=== PATIENT | female | born 2000 | race Caucasian/White ===

== ENCOUNTER 2022-10-01 16:09 | Emergency (ER) | payer MEDICAID, SELFPAY ==
[2022-10-01 16:18] VITALS: BP 92/36; PULSE 106; RESP 18; TEMP 36.7; O2SAT 95; BMI 23.2
[2022-10-01 18:05] VITALS: BP 112/76; PULSE 106; RESP 18; TEMP 36.7; O2SAT 95; BMI 23.3
--- NOTE | 2022-10-01 18:23 | EXP.UTC ---
Discharge Plan Disposition Patient Disposition: Home, Self-Care Condition: Good Prescriptions Prescriptions: New ondansetron 4 mg tablet,disintegrating 4 mg PO Q8H PRN (Reason: nausea and vomiting) Qty: 10 0RF Referrals Follow up/Referrals: Provider,Referral, MD [Primary Care Provider] - See instructions Activity Restrictions/Add. Instructions Additional Instructions/Restrictions: Drink extra fluids with and between meals. If you have difficulty drinking, try very small amounts of water or suck on ice chips. ? Avoid fruit juices, as these do not replace minerals and can actually increase diarrhea. ? Children and adults can use sports drinks to replenish electrolytes. Younger children and infants should use products formulated for children, like oral rehydration solutions. ? Eat food in small amounts and let your stomach recover. ? Get lots of rest. You may feel tired or weak. ? No greasy or fried foods for the next 24-48 hours BRAT diet Bananas Rice Apples and [place] ? Make sure to drink plenty of liquids ? Return if needed ? Straight to ER if any life threatening symptoms ? Zofran as prescribed ? You was given an outpatient order for diarrhea panel, please collect specimen and bring back to outpatient lab then call back to the [facility] or follow up with family doctor for results ? Follow up with family doctor in the next 48-72 hours if no improvement or any worsening of symptoms Clinical Impressions Clinical Impression: Viral syndrome Stand Alone Forms Stand Alone Forms: Work/School Release Discharge ED Provider: Tiffanie Michaels [facility] [place] General Stated complaint: vomiting, chills, h/a, body aches Mode of Arrival: Ambulatory Source of Information: Patient Limitations: No Limitations Time Seen by Provider: 10/01/22 18:24 Description of Symptoms (Recalled from Triage Doc. by RN): PATIENT C/O VOMITING, BODY ACHES, HEADACHE, SOA, AND CHILLS HEENT Symptoms (Recalled from RN notes): Yes Resp Symptoms (Recalled from RN notes): No Skin Symptoms (Recalled from RN notes): No MS Symptoms (Recalled from RN notes): No Functional Status (Recalled from RN notes): WNL History of Present Illness Provider Complaint: Patient states that she woke up yesterday not feeling well States that she has been having nausea, vomiting, body aches, chills, headache and feeling achy all over States that today she has continued to feel worse so this evening she came in to get checked out Related Data Previous Rx's Medication Instructions Recorded ondansetron 4 mg disintegrating 4 mg PO Q8H PRN nausea and 10/01/22 tablet vomiting #10 tabs Allergies Allergy/AdvReac Type Severity Reaction Status Date / Time No Known Allergies Allergy Verified 10/01/22 18:43 Worker's Comp Is this a Worker's Comp case?: No [facility] Disclaimer: The information contained in this section may have been updated after the patient was seen, as this information can be updated by other users. Social History Smoking Status: Unknown if ever smoked alcohol intake: never current occupational status: employed Travel in the last 8 weeks: None ROS Obtained: Yes All systems reviewed & no additional complaints except as documented and Yes Systems reviewed as appropriate & no additional complaints except as documented Constitutional Constitutional: Reports system reviewed and no additional complaints, except as documented, Reports as per HPI, Reports body ache, Reports chills, Reports fever(s) and Reports headache(s) ENT Ears, Nose, Mouth, and Throat: Reports system reviewed and no additional complaints, except as documented, Reports as per HPI, Reports headache(s) and Reports sore throat Cardiovascular Cardiovascular: Reports system reviewed and no additional complaints, except as documented and Reports as per HPI Respiratory Respiratory: Reports system reviewed and no additi
[2022-10-01 18:44] LABS: UTC Influenza A Antigen Negative (Negative); UTC Pregnancy Test, Urine Negative (Negative)
[2022-10-01 18:44] LABS: UTC Strep Screen (Rapid) Negative (Negative)
[2022-10-01 18:45] LABS: UTC Influenza B Antigen Negative (Negative)
[2022-10-01 18:55] VITALS: BP 112/76; PULSE 106; RESP 18; TEMP 36.7; O2SAT 95
== END 2022-10-01 19:20 | disposition home or self-care (01) ==
PROVIDERS: Emergency Provider Nurse Practitioner
DX: R11.10 Vomiting, unspecified (principal); R50.9 Fever, unspecified; R51.9 Headache, unspecified; R52 Pain, unspecified; B34.9 Viral infection, unspecified
CPT/HCPCS: 81025; 87804; 87880; 99212; C9803; G0463; U0003; U0005

== ENCOUNTER 2023-02-24 19:48 | Emergency (ER) | payer MEDICAID, SELFPAY ==
[2023-02-24 19:52] VITALS: BP 139/87; PULSE 63; RESP 16; TEMP 36.8; O2SAT 100; BMI 23.8
--- NOTE | 2023-02-24 20:07 | XR_ITS ---
PROCEDURE INFORMATION: Exam: XR Right Hand Exam date and time: 02/24/2023 8:02 PM Age: 22 years old Clinical indication: Pain; Hand; Right TECHNIQUE: Imaging protocol: Radiologic exam of the right hand. Views: 3 or more views. COMPARISON: No relevant prior studies available. FINDINGS: Bones/joints: Normal. Soft tissues: Normal. IMPRESSION: No acute findings.
[2023-02-24 20:58] VITALS: BP 130/85; PULSE 60; RESP 16; TEMP 36.8; O2SAT 98
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
--- NOTE | 2023-02-24 21:07 | PC.NURSE ---
ER Dr at bedside at this time
== END 2023-02-24 21:26 | disposition home or self-care (01) ==
PROVIDERS: Emergency Provider Emergency Medicine
DX: W20.8XXA Other cause of strike by thrown, projected or falling object, initial encounter; F17.200 Nicotine dependence, unspecified, uncomplicated; S60.221A Contusion of right hand, initial encounter
CPT/HCPCS: 73130; 99283

== ENCOUNTER 2023-03-04 22:48 | Emergency (ER) | payer MEDICAID, SELFPAY ==
[2023-03-04 22:49] VITALS: BP 148/89; PULSE 91; RESP 18; TEMP 37.2; O2SAT 100; BMI 22.6
[2023-03-04 22:52] VITALS: BP 148/89; PULSE 91; O2SAT 100
--- NOTE | 2023-03-04 23:05 | CT_ITS ---
PROCEDURE INFORMATION: Exam: CT Maxillofacial Without Contrast Exam date and time: 03/04/2023 11:34 PM Age: 22 years old Clinical indication: Other: Lockjaw; Patient HX: C/O pain right side TECHNIQUE: Imaging protocol: Computed tomography of the face without contrast. Total images: 233 Radiation optimization: All CT scans at this facility use at least one of these dose optimization techniques: automated exposure control; mA and/or kV adjustment per patient size (includes targeted exams where dose is matched to clinical indication); or iterative reconstruction. REPORTING DATA: Count of CT and Cardiac NM exams in prior 12 months: This patient has received 0 known CTs and 0 known cardiac nuclear medicine studies in the 12 months prior to the current study. COMPARISON: No relevant prior studies available. FINDINGS: Orbital cavities: Orbital globes are intact and symmetric. No lens dislocation. No retro-orbital mass, fluid, or air. Bones/joints: No facial bone fracture or concerning bone lesions. No mandibular fracture or concerning bone lesions. Bilateral temporomandibular joints are age appropriate. No dislocation or subluxation. No erosions or concerning calcifications. Minor degenerative disc change C4-C5. Paranasal sinuses: Paranasal sinuses are clear. Bilateral ostiomeatal complexes are patent. Soft tissues: No facial hematoma or significant soft tissue swelling. Nasal cavity: Nasal septal deviation to the right. Dental: Metallic artifact from dental hardware obscures adjacent structures. Large dental erosion/cavitary lesion referable to the posterior-most right maxillary molar. IMPRESSION: 1. No acute osseous abnormality. 2. Unremarkable mandible and bilateral temporomandibular joints. 3. Large erosion/dental caries referable to the posterior-most right maxillary molar. 4. Clear paranasal sinuses.
[2023-03-04 23:15] LABS: Basophils % 0.3 % (0.1-2.0); Eosinophils # 0.2 K/mm3 (0.0-0.4); Eosinophils % 1.6 % (0.1-12.0); Hemoglobin 13.5 g/dL (12.2-16.2); Lymphocytes # 4.5 K/mm3 (0.7-4.5); Mean Corpuscular HGB Conc 32.2 g/dL (31.8-35.4); Mean Corpuscular Hemoglobin 30.4 pg (27.0-31.2); Mean Corpuscular Volume 94.6 fl (81-99); Mean Platelet Volume 6.6 fl (7.4-10.4); Monocytes # 0.7 K/mm3 (0.1-1.0); Neutrophils # 5.9 K/mm3 (1.8-7.8); Neutrophils % 52.1 % (37.0-80.0); Platelet Count 335 K/mm3 (142-424); Red Blood Count 4.44 M/mm3 (4.20-5.40); White Blood Count 11.3 K/mm3 (4.8-10.8)
[2023-03-04 23:17] LABS: Chloride 103 mmol/L (98-107); Sodium 140 mmol/L (136-145)
[2023-03-04 23:19] LABS: Blood Urea Nitrogen 18 mg/dl (7-17); Creatinine Clearance Estimated 110 mL/min (50-200); Estimated Glomerular Filt Rate 103 ml/min (>60); GFR (African American) 124 ML/MIN (>60)
[2023-03-04 23:20] LABS: Alanine Aminotransferase 21 U/L (12-78); Albumin Level 4.7 g/dl (3.5-5.0); Albumin/Globulin Ratio 1.3 (1.1-1.8); Alkaline Phosphatase 45 U/L (38-126); Aspartate Amino Transferase 32 U/L (14-36); Bilirubin,Total 1.1 mg/dl (0.2-1.3); Calcium 8.9 mg/dl (8.4-10.2); Carbon Dioxide 25 mmol/L (22.0-30.0); Globulin 3.5 g/dL (1.3-3.2); Glucose 143 mg/dl (74-100); Total Protein,Serum 8.2 g/dl (6.3-8.2)
[2023-03-04 23:23] LABS: HCG Qualitative, Serum Negative (Negative)
--- NOTE | 2023-03-04 23:33 | HMH.EDGENADL ---
Discharge Plan Disposition Patient Disposition: Home, Self-Care Prescriptions Prescriptions: New cephalexin [cephalexin] 500 mg capsule 500 mg PO TID Qty: 21 0RF ketorolac 10 mg tablet 10 mg PO Q8H PRN (Reason: pain) 3 Days Qty: 10 0RF cyclobenzaprine 10 mg tablet 10 mg PO BID Qty: 20 0RF No Action ondansetron 4 mg tablet,disintegrating 4 mg PO Q8H PRN (Reason: nausea and vomiting) Qty: 10 0RF Referrals Follow up/Referrals: Provider,Referral, MD [Primary Care Provider] - See instructions Clinical Impressions Clinical Impression: Arthralgia of right temporomandibular joint Instructions Patient Instructions: DI for Temporomandibular Disorder Discharge ED Provider: Emilia (ED)Tanner General Adult HPI General Chief complaint: PAIN Stated complaint: jaw pain Time Seen by Provider: 03/04/23 22:50 Mode of Arrival: Ambulatory Source of Information: Patient and Medical Record Limitations: No Limitations Description of Symptoms (Recalled from ER Triage Doc. by RN): pt states that her jaw locked up on her today and that when it did it felt lik eher top teeth on the right side were jammed up into the top of the jaw. the pt states that she has had her jaw lock before but not with the secondary feeling with the teeth. pain 07/09 History of Present Illness HPI narrative: pt with acute rt tmj and upper jaw pain which started today - no fever or other c/o Onset (ago): hour(s) Location: face Severity: moderate Associated symptoms: denies other symptoms Related Data Previous Rx's Medication Instructions Recorded ondansetron 4 mg disintegrating 4 mg PO Q8H PRN nausea and 10/01/22 tablet vomiting #10 tabs cephalexin 500 mg capsule 500 mg PO TID #21 caps 03/05/23 cyclobenzaprine 10 mg tablet 10 mg PO BID #20 tabs 03/05/23 ketorolac 10 mg tablet 10 mg PO Q8H PRN pain 3 days #10 03/05/23 tabs Allergies Allergy/AdvReac Type Severity Reaction Status Date / Time No Known Allergies Allergy Verified 10/01/22 18:43 [facility] Disclaimer: The information contained in this section may have been updated after the patient was seen, as this information can be updated by other users. Social History (Updated 10/01/22 @ 19:13 by Tiffanie Michaels APRN) Smoking Status: Current every day smoker alcohol intake: never current occupational status: employed Travel in the last 8 weeks: None ROS Obtained: Yes All systems reviewed & no additional complaints except as documented Physical Exam General General appearance: alert Head Head exam: normocephalic Eye Eye exam: Present PERRL and EOMI ENT ENT exam: Present mucous membranes moist and other (no def abscess on oral exam -) Neck Neck exam: Present trachea midline Respiratory Respiratory exam: Present normal lung sounds bilaterally; Absent respiratory distress Cardiovascular Cardiovascular exam: Present regular rate Abdominal Exam Abdominal exam: Present soft Extremities Exam Extremities exam: Present full ROM Neurological Exam Neurological exam: Present alert, oriented X3 and CN II-XII intact; Absent motor sensory deficit Skin Skin exam: Absent rash Medical Decision Making Medical Records Medical records reviewed: Yes I reviewed the patient's medical records. Ramiro Inquiry Pt receiving controlled substance: No Vital Signs: 03/04/23 22:49 03/04/23 22:52 Temperature 98.9 F Temperature Source Oral Pulse Rate 91 H Pulse Rate [Left] 91 H Respiratory Rate 18 Blood Pressure 148/89 H Blood Pressure [Right Arm] 148/89 H Blood Pressure Mean [Right Arm] 108 02 Sat by Pulse Oximetry 100 100 Oxygen Delivery Method Room Air Room Air Lab Data Lab results reviewed: Yes I reviewed the patient's lab results. Lab Results 03/04/23 23:00: WBC 11.3 H, RBC 4.44, Hgb 13.5, Hct 42.0, MCV 94.6, MCH 30.4, MCHC 32.2, RDW 12.0, Plt Count 335, MPV 6.6 L, Neut % (Auto) 52.1, Lymph % (Auto) 40.0, Leon % (Auto) 6.0, Eos % (Auto) 1.6,
[2023-03-05 00:51] VITALS: BP 148/89; PULSE 97; RESP 16; TEMP 36.8; O2SAT 98
== END 2023-03-05 01:55 | disposition home or self-care (01) ==
PROVIDERS: Emergency Provider Emergency Medicine
DX: M26.621 Arthralgia of right temporomandibular joint (principal); F17.200 Nicotine dependence, unspecified, uncomplicated
CPT/HCPCS: 70486; 80053; 84703; 85025; 96361; 96374; 96375; 99284; 99285; J0131; J0696; J2405

== ENCOUNTER 2023-12-13 17:25 | Emergency (ER) | payer MEDICAID, SELFPAY ==
[2023-12-13 17:35] VITALS: BP 137/91; PULSE 111; RESP 16; TEMP 36.7; O2SAT 99; BMI 26.6
--- NOTE | 2023-12-13 18:02 | XR_ITS ---
PROCEDURE INFORMATION: Exam: XR Right Foot Exam date and time: 12/13/2023 6:01 PM Age: 23 years old Clinical indication: Injury or trauma; Other: Stubbed toe; Blunt trauma; Patient HX: States she stubbed her toe. Bruising noted to 4th digit right foot; Additional info: Injury/pain TECHNIQUE: Imaging protocol: Radiologic exam of the right foot. Views: 1 or 2 views. COMPARISON: No relevant prior studies available. FINDINGS: Bones/joints: No acute fracture or malalignment. Soft tissues: Normal. IMPRESSION: No acute osseous findings.
--- NOTE | 2023-12-13 18:16 | HMH.EDGENADL ---
Discharge Plan Disposition Patient Disposition: Home, Self-Care Chief Complaint: Extremity Injury, Lower Prescriptions Prescriptions: No Action ondansetron 4 mg tablet,disintegrating 4 mg PO Q8H PRN (Reason: nausea and vomiting) Qty: 10 0RF cephalexin [cephalexin] 500 mg capsule 500 mg PO TID Qty: 21 0RF ketorolac 10 mg tablet 10 mg PO Q8H PRN (Reason: pain) 3 Days Qty: 10 0RF cyclobenzaprine 10 mg tablet 10 mg PO BID Qty: 20 0RF Referrals Follow up/Referrals: Provider,Referral, MD [Primary Care Provider] - See instructions Activity Restrictions/Add. Instructions Additional Instructions/Restrictions: Call your family doctor to establish care for this visit to the emergency department and schedule follow-up within 48 hours to ensure improvement. Take Tylenol 1000 mg every 6 hours (4 times daily) and ibuprofen 400 mg every 6 hours (4 times daily) as needed with food and water to prevent GI upset and kidney damage. Clinical Impressions Clinical Impression: Sprain of toe, fourth, right Discharge ED Provider: Carlos Castrejon General Adult HPI General Chief complaint: Extremity Injury, Lower Stated complaint: AO Right toe swelling pain turning black Time Seen by Provider: 12/13/23 17:37 Mode of Arrival: Ambulatory Source of Information: Patient Limitations: No Limitations Description of Symptoms (Recalled from ER Triage Doc. by RN): c/o right toe that has turned blue in color after hitting it on a rolling chair approx 2 hours ago. pt states that she has pain when walking. History of Present Illness HPI narrative: This is a 23-year-old female with no relevant medical history presenting with right toe pain. She states that she has on a chair just before arrival while she was walking. Difficulty putting her shoe on secondary to pain. It is bruised, swollen, tender, better when she elevates it, worse when she puts weight on it. It is moderate in intensity and does not radiate. Related Data Previous Rx's Medication Instructions Recorded ondansetron 4 mg disintegrating 4 mg PO Q8H PRN nausea and 10/01/22 tablet vomiting #10 tabs cephalexin 500 mg capsule 500 mg PO TID #21 caps 03/05/23 cyclobenzaprine 10 mg tablet 10 mg PO BID #20 tabs 03/05/23 ketorolac 10 mg tablet 10 mg PO Q8H PRN pain 3 days #10 03/05/23 tabs Allergies Allergy/AdvReac Type Severity Reaction Status Date / Time No Known Allergies Allergy Verified 10/01/22 18:[address] [facility] Disclaimer: The information contained in this section may have been updated after the patient was seen, as this information can be updated by other users. Social History (Updated 10/01/22 @ 19:13 by Tiffanie Michaels APRN) Smoking Status: Never smoker alcohol intake: never current occupational status: employed Travel in the last 8 weeks: None ROS Obtained: Yes All systems reviewed & no additional complaints except as documented Physical Exam General General appearance: alert and in no apparent distress Head Head exam: atraumatic and normocephalic Eye Eye exam: Present normal appearance, PERRL and EOMI ENT ENT exam: Present mucous membranes moist Neck Neck exam: Present normal inspection, full ROM and trachea midline Respiratory Respiratory exam: Absent respiratory distress, wheezes, stridor, accessory muscle use or prolonged expiratory phase Cardiovascular Cardiovascular exam: Present normal rhythm Abdominal Exam Abdominal exam: Present soft; Absent distention, tenderness, guarding, rebound or rigidity Extremities Exam Extremities exam: Present other (Right fourth toe swelling, bruising, tenderness. Range of motion intact and sensation intact); Absent edema Neurological Exam Neurological exam: Present alert, oriented X3, CN II-XII intact and normal gait; Absent motor sensory deficit Skin Skin exam: Present warm and dry; Absent diaphoresis or erythema Medical Decision Making Medical Records Medical records reviewed: Yes I reviewed the patient's medical records. Ramiro Inquiry Pt receiving controlled substance: No Ramiro was queried for this patient: No Vital Signs: 12/13/23 17:35 Temperature 98.1 F Temperature Source Oral Pulse Rate [Left Radial] 111 H Respiratory Rate 16 Blood Pressure [Right Arm] 137/91 H Blood Pressure Mean [Right Arm] 106 02 Sat by Pulse Oximetry 99 Oxygen Delivery Method Room Air Orders (Tests/Meds): ORDERS Category Date Time Status Foot XR right 2 views [XR foot RT 2V] Stat Exams 12/13/23 18:02 Taken Medical Decision Narrative: Is a 23-year-old female no relevant medical history presenting with right fourth toe pain. Otherwise, no trauma sustained. history obtained with patient. On arrival, patient hemodynamically stable, in no acute distress. Right fourth toe is bruised, swollen, tender, but range of motion intact and sensation is intact. Differential includes fracture, sprain, strain, among others. X-rays obtained, no acute fracture. Because patient at baseline without signs or symptoms of clinical decompensation, deemed appropriate for discharge. Results were relayed to patient who voiced understanding and were agreeable to outpatient management and follow up. At the time of discharge the patient was hemodynamically stable, tolerating PO, and mobilizing appropriately. Critical Care Critical Care Time Critical Care Time: No
[2023-12-13 18:28] VITALS: BP 134/92; PULSE 100; RESP 16; TEMP 36.7; O2SAT 99
== END 2023-12-13 18:29 | disposition home or self-care (01) ==
PROVIDERS: Emergency Provider Emergency Medicine
DX: S93.504A Unspecified sprain of right lesser toe(s), initial encounter (principal); W22.03XA Walked into furniture, initial encounter; S90.121A Contusion of right lesser toe(s) without damage to nail, initial encounter
CPT/HCPCS: 73620; 99283

== ENCOUNTER 2024-08-06 17:53 | Emergency (ER) | payer MEDICAID, SELFPAY ==
[2024-08-06 17:55] VITALS: BP 134/78; PULSE 110; RESP 20; TEMP 36.9; O2SAT 99; BMI 27.4
--- NOTE | 2024-08-06 18:27 | HMH.EDGENADL ---
Discharge Plan Disposition Patient Disposition: Home, Self-Care Condition: Good Prescriptions Prescriptions: New sulfamethoxazole-trimethoprim [Bactrim DS] 800-160 mg tablet 1 tab PO BID 5 Days Qty: 10 0RF No Action ondansetron 4 mg tablet,disintegrating 4 mg PO Q8H PRN (Reason: nausea and vomiting) Qty: 10 0RF cephalexin [cephalexin] 500 mg capsule 500 mg PO TID Qty: 21 0RF ketorolac 10 mg tablet 10 mg PO Q8H PRN (Reason: pain) 3 Days Qty: 10 0RF cyclobenzaprine 10 mg tablet 10 mg PO BID Qty: 20 0RF Referrals Follow up/Referrals: Provider,Referral, MD [Primary Care Provider] - See instructions Activity Restrictions/Add. Instructions Additional Instructions/Restrictions: As we discussed continue taking Tylenol alternating with Motrin for constitutional symptoms. Please stay hydrated with Gatorade or other like noncarbonated beverages. Water is perfectly fine as well. If you have no improvement or worsening signs or symptoms follow-up with your PCP or return to the ER as needed. Clinical Impressions Clinical Impression: Viral syndrome UTI (urinary tract infection) Qualifiers: Urinary tract infection type: site unspecified Hematuria presence: with hematuria Qualified Code(s): N39.0 - Urinary tract infection, site not specified Stand Alone Forms Stand Alone Forms: Work/School Release Print Language Print Language: Occitan Discharge ED Provider: Carlos Castrejon General Adult HPI <ILIR Tran - Last Filed: 08/06/24 22:33> General Chief complaint: Upper Respiratory Infection Stated complaint: Sore throat,vomiting,body aches Time Seen by Provider: 08/06/24 18:27 History of Present Illness HPI narrative: Patient presents for evaluation of sore throat vomiting and bodyaches. Patient has had 2 days of sore throat now with vomiting and myalgias. Patient's son recently was diagnosed with a viral respiratory tract infection but patient also reports that she was exposed to the flu by 2 coworkers. She denies any chest pain shortness of breath chills hemoptysis hematochezia melena Related Data Previous Rx's ?Medication ?Instructions ?Recorded ondansetron 4 mg disintegrating 4 mg PO Q8H PRN nausea and 10/01/22 tablet vomiting #10 tabs cephalexin 500 mg capsule 500 mg PO TID #21 caps 03/05/23 cyclobenzaprine 10 mg tablet 10 mg PO BID #20 tabs 03/05/23 ketorolac 10 mg tablet 10 mg PO Q8H PRN pain 3 days #10 03/05/23 tabs sulfamethoxazole 800 1 tab PO BID 5 days #10 tabs 08/06/24 mg-trimethoprim 160 mg tablet (Bactrim DS) Allergies Allergy/AdvReac Type Severity Reaction Status Date / Time No Known Allergies Allergy Verified 10/01/22 18:43 PFSH <ILIR Tran - Last Filed: 08/06/24 22:33> PFS Disclaimer: The information contained in this section may have been updated after the patient was seen, as this information can be updated by other users. Social History (Updated 10/01/22 @ 19:13 by Tiffanie Michaels APRN) Smoking Status: Current every day smoker alcohol intake: never current occupational status: employed Travel in the last 8 weeks: None <ILIR Tran - Last Filed: 08/06/24 22:33> ROS Obtained: Yes Systems reviewed as appropriate & no additional complaints except as documented Physical Exam <ILIR Tran - Last Filed: 08/06/24 22:33> General General appearance: alert and in no apparent distress Respiratory Respiratory exam: Present normal lung sounds bilaterally Cardiovascular Cardiovascular exam: Present tachycardia Neurological Exam Neurological exam: Present alert and oriented X3 Medical Decision Making <ILIR Tran - Last Filed: 08/06/24 22:33> Medical Records Medical records reviewed: Yes I reviewed the patient's medical records. Screening: Per USPSTF and CDC recommendations, given the prevalence of disease in our region, it is our hospital?s policy to screen for HIV and viral Hepatitis for all patients aged 18 and over and those with ongoing risk factors. Ramiro Inquiry Pt receiving controlled substance: No Vital Signs: 08/06/24 17:55 08/06/24 21:45 Temperature 98.5 F 98.2 F Temperature Source Oral Oral Pulse Rate 84 Pulse Rate [Left Radial] 110 H Respiratory Rate 20 18 Blood Pressure 133/73 Blood Pressure [Right Arm] 134/78 Blood Pressure Mean [Right Arm] 96 Blood Pressure Source Automatic Cuff Blood Pressure Source [Right Arm] Automatic Cuff Blood Pressure Position Sitting Blood Pressure Position [Right Arm] Sitting 02 Sat by Pulse Oximetry 99 Oxygen Delivery Method Room Air Room Air Lab Data Lab results reviewed: Yes I reviewed the patient's lab results. Lab Results 08/06/24 18:28: SARS-CoV-2 (PCR) Not detected, Influenza A Untype (PCR) Not detected, Influenza Type B (PCR) Not detected 08/06/24 19:19: WBC 7.6, RBC 4.64, Hgb 14.2, Hct 42.0, MCV 90.5, MCH 30.6, MCHC 33.9, RDW 12.8, Plt Count 282, MPV 6.9 L, Neut % (Auto) 63.2, Lymph % (Auto) 22.4, [place] % (Auto) 8.2, Eos % (Auto) 4.1, Baso % (Auto) 2.1 H, Neut # (Auto) 4.8, Lymph # (Auto) 1.7, [place] # (Auto) 0.6, Eos # (Auto) 0.3, Baso # (Auto) 0.2, Sodium 139, Potassium 3.4 L, Chloride 107, Carbon Dioxide 24, Anion Gap 11.4, BUN 9, Creatinine 0.70, Estimated GFR 101, Est GFR ( Amer) 122, Glucose 116 H, Calcium 9.0, Total Bilirubin 1.0, AST 27, ALT 17, Alkaline Phosphatase 60, Total Protein 8.4 H, Albumin 4.6, Globulin 3.8 H, Albumin/Globulin Ratio 1.2, HIV 1&2 Antibody Rapid Nonreactive 08/06/24 19:37: Urine Color Yellow, Urine Appearance Clear, Urine pH 6.5, Ur Specific [place] <= 1.005, Urine Protein Negative, Urine Glucose (UA) Negative, Urine Ketones Negative, Urine Blood Negative, Urine Nitrate Negative, Urine Bilirubin Negative, Urine Urobilinogen 0.2, Ur Leukocyte Esterase Trace, Urine RBC 3-5, Urine WBC 10-20, Ur Squamous Epith Cells 3-5, Urine Bacteria 1+, Urine HCG, Qual Negative 08/06/24 19:19 08/06/24 19:19 Orders (Tests/Meds): ED MEDICATIONS Discontinued Medications Generic Name Dose Route Start Last Admin Trade Name Freq PRN Reason Stop Dose Admin Acetaminophen 1,000 mg 08/06/24 18:34 08/06/24 19:13 Acetaminophen 1,000mg/100ml Vial IV 08/06/24 18:35 1,000 mg ONCE ONE Administration Sodium Chloride 1,000 mls @ 999 mls/hr 08/06/24 18:34 08/06/24 19:13 Sod Chlor 0.9% 1000ml Bag IV 08/06/24 19:34 999 mls/hr .Q1H1M ONE Administration Ketorolac Tromethamine 15 mg 08/06/24 18:34 08/06/24 19:13 Ketorolac 30mg/Ml Vial IV 08/06/24 18:35 15 mg ONCE ONE Administration Ondansetron HCl 4 mg 08/06/24 18:34 08/06/24 19:13 Ondansetron 4mg/2ml Vial IV 08/06/24 18:35 4 mg ONCE ONE Administration ORDERS Category Date Time Status Chest XR 2 view (NOT portable) [XR chest 2V] Stat Exams 08/06/24 18:35 Completed CBC w/Auto Diff [Complete Blood Count Auto Diff] Stat Lab 08/06/24 19:19 Completed CMP [Comprehensive Metabolic Panel] Stat Lab 08/06/24 19:19 Completed HIV (1&2) Antibody Rapid Stat Lab 08/06/24 19:19 Completed Hep C Ab with Reflex to RNA Stat Lab 08/06/24 19:19 Received Rapid PCR Covid and Flu A/B Stat Lab 08/06/24 18:28 Completed UA [Urinalysis and Microscopic] Stat Lab 08/06/24 19:37 Completed Urine , HCG Qual. Stat Lab 08/06/24 19:37 Completed Urine Culture Stat Micro 08/06/24 19:37 Received Medical Decision Narrative: In summary patient is a 24-year-old female who presents to the emergency department for evaluation of cough myalgias and malaise. Patient is normotensive with a blood pressure 134/78 but tachycardic at 125 at the time of my exam but sinus tachycardia on the bedside monitor satting at 99% on room air breathing 20 times a minute upon arrival, with a temperature of 98.5 currently. Physical exam is remarkable for a well-nourished well-developed but unwell appearing 24-year-old female who otherwise is in no acute distress breath sounds are clear and equal bilaterally to the bases heart sounds are rapid but normal no abdominal discomfort. Differential diagnosis includes viral bacterial infection. Initial workup will be conducted with twelve-lead EKG plain film chest x-ray hematologic labs COVID and flu swabs urinalysis.. Initial interventions include crystalloid bolus Tylenol Toradol. Initial workup reviewed by me and her hematologic labs are nonactionable including a normal white count with no shift and her urine is negative dipstick but microscopic exam shows 3-5 reds 20 whites 3-5 epithelial cells 1+ bacteria and her COVID and flu swabs are negative. Upon repeat evaluation patient did report improvement after initial interventions.. Given this patient is appropriate for discharge with prescription for Bactrim with first dose given here. <Carlos Castrejon MD - Last Filed: 08/06/24 23:14> Vital Signs: 08/06/24 17:55 08/06/24 21:45 Temperature 98.5 F 98.2 F Temperature Source Oral Oral Pulse Rate 84 Pulse Rate [Left Radial] 110 H Respiratory Rate 20 18 Blood Pressure 133/73 Blood Pressure [Right Arm] 134/78 Blood Pressure Mean [Right Arm] 96 Blood Pressure Source Automatic Cuff Blood Pressure Source [Right Arm] Automatic Cuff Blood Pressure Position Sitting Blood Pressure Position [Right Arm] Sitting 02 Sat by Pulse Oximetry 99 Oxygen Delivery Method Room Air Room Air Lab Data Lab Results 08/06/24 18:28: SARS-CoV-2 (PCR) Not detected, Influenza A Untype (PCR) Not detected, Influenza Type B (PCR) Not detected 08/06/24 19:19: WBC 7.6, RBC 4.64, Hgb 14.2, Hct 42.0, MCV 90.5, MCH 30.6, MCHC 33.9, RDW 12.8, Plt Count 282, MPV 6.9 L, Neut % (Auto) 63.2, Lymph % (Auto) 22.4, [place] % (Auto) 8.2, Eos % (Auto) 4.1, Baso % (Auto) 2.1 H, Neut # (Auto) 4.8, Lymph # (Auto) 1.7, [place] # (Auto) 0.6, Eos # (Auto) 0.3, Baso # (Auto) 0.2, Sodium 139, Potassium 3.4 L, Chloride 107, Carbon Dioxide 24, Anion Gap 11.4, BUN 9, Creatinine 0.70, Estimated GFR 101, Est GFR ( Amer) 122, Glucose 116 H, Calcium 9.0, Total Bilirubin 1.0, AST 27, ALT 17, Alkaline Phosphatase 60, Total Protein 8.4 H, Albumin 4.6, Globulin 3.8 H, Albumin/Globulin Ratio 1.2, HIV 1&2 Antibody Rapid Nonreactive 08/06/24 19:37: Urine Color Yellow, Urine Appearance Clear, Urine pH 6.5, Ur Specific [place] <= 1.005, Urine Protein Negative, Urine Glucose (UA) Negative, Urine Ketones Negative, Urine Blood Negative, Urine Nitrate Negative, Urine Bilirubin Negative, Urine Urobilinogen 0.2, Ur Leukocyte Esterase Trace, Urine RBC 3-5, Urine WBC 10-20, Ur Squamous Epith Cells 3-5, Urine Bacteria 1+, Urine HCG, Qual Negative Orders (Tests/Meds): ED MEDICATIONS Discontinued Medications Generic Name Dose Route Start Last Admin Trade Name Freq PRN Reason Stop Dose Admin Acetaminophen 1,000 mg 08/06/24 18:34 08/06/24 19:13 Acetaminophen 1,000mg/100ml Vial IV 08/06/24 18:35 1,000 mg ONCE ONE Administration Sodium Chloride 1,000 mls @ 999 mls/hr 08/06/24 18:34 08/06/24 19:13 Sod Chlor 0.9% 1000ml Bag IV 08/06/24 19:34 999 mls/hr .Q1H1M ONE Administration Ketorolac Tromethamine 15 mg 08/06/24 18:34 08/06/24 19:13 Ketorolac 30mg/Ml Vial IV 08/06/24 18:35 15 mg ONCE ONE Administration Ondansetron HCl 4 mg 08/06/24 18:34 08/06/24 19:13 Ondansetron 4mg/2ml Vial IV 08/06/24 18:35 4 mg ONCE ONE Administration ORDERS Category Date Time Status Chest XR 2 view (NOT portable) [XR chest 2V] Stat Exams 08/06/24 18:35 Completed CBC w/Auto Diff [Complete Blood Count Auto Diff] Stat Lab 08/06/24 19:19 Completed CMP [Comprehensive Metabolic Panel] Stat Lab 08/06/24 19:19 Completed HIV (1&2) Antibody Rapid Stat Lab 08/06/24 19:19 Completed Hep C Ab with Reflex to RNA Stat Lab 11/07/24 19:19 Received Rapid PCR Covid and Flu A/B Stat Lab 08/06/24 18:28 Completed UA [Urinalysis and Microscopic] Stat Lab 08/06/24 19:37 Completed Urine , HCG Qual. Stat Lab 08/06/24 19:37 Completed Urine Culture Stat Micro 08/06/24 19:37 Received ECG Data Tracing #1: I reviewed this ECG and interpreted as documented below: (Sinus tachycardia 109 bpm without T wave changes concerning for acute ischemia, patient does have some ST depression in lateral and inferior leads without reciprocal elevations. AK 136, QRS 83, QTc 396) Medical Decision Narrative: In summary patient is a 24-year-old female who presents to the emergency department for evaluation of cough myalgias and malaise. Patient is normotensive with a blood pressure 134/78 but tachycardic at 125 at the time of my exam but sinus tachycardia on the bedside monitor satting at 99% on room air breathing 20 times a minute upon arrival, with a temperature of 98.5 currently. Physical exam is remarkable for a well-nourished well-developed but unwell appearing 24-year-old female who otherwise is in no acute distress breath sounds are clear and equal bilaterally to the bases heart sounds are rapid but normal no abdominal discomfort. Differential diagnosis includes viral bacterial infection. Initial workup will be conducted with twelve-lead EKG plain film chest x-ray hematologic labs COVID and flu swabs urinalysis.. Initial interventions include crystalloid bolus Tylenol Toradol. Initial workup reviewed by me and her hematologic labs are nonactionable including a normal white count with no shift and her urine is negative dipstick but microscopic exam shows 3-5 reds 20 whites 3-5 epithelial cells 1+ bacteria and her COVID and flu swabs are negative. Upon repeat evaluation patient did report improvement after initial interventions.. Given this patient is appropriate for discharge with prescription for Bactrim with first dose given here. I was consulted by the TYLER, and we discussed the complexity of the problems being addressed. I approved the treatment and management plan for this patient's care in the Emergency Department, thus performing a substantive portion of the medical decision making. Carlos Castrejon MD Critical Care <ILIR Tran - Last Filed: 08/06/24 22:33> Critical Care Time Critical Care Time: No
--- NOTE | 2024-08-06 18:35 | XR_ITS ---
PROCEDURE INFORMATION: Exam: XR Chest Exam date and time: 08/06/2024 7:49 PM Age: 24 years old Clinical indication: Cough and fever and shortness of breath; Additional info: Cough fever TECHNIQUE: Imaging protocol: Radiologic exam of the chest. Views: 2 views. COMPARISON: No relevant prior studies available. FINDINGS: Lungs: Central opacities with peribronchial cuffing, seen to advantage on the lateral chest radiograph. Pleural spaces: Unremarkable. No pleural effusion. No pneumothorax. Heart/Mediastinum: Unremarkable. No cardiomegaly. Bones/joints: Unremarkable. IMPRESSION: Combination of findings that suggests viral process versus reactive airways without evidence of consolidation.
--- NOTE | 2024-08-06 18:50 | ECG_ITS ---
APPROVED REPORT Exam: Resting ECG HR:109 bpm ECG Measurements Heart Rate 109 AXES ID 136 P 71 QRSd 83 QRS 63 QT 332 T 53 QTc [address]ressions without reciprocal elevations Electronically signed by : KEVIN ORDOÑEZ, 08/06/2024 23:08:43
[2024-08-06 19:06] LABS: Coronavirus 19, PCR Not Detected (NotDetected); Influenza A, PCR Not Detected (NotDetected); Influenza B, PCR Not Detected (NotDetected)
--- NOTE | 2024-08-06 19:11 | HMH.ITSTN ---
asked pt if she was able to give urine sample for urine preg test. pt unable to at this time. per er staff, i was able to give her a bottle of water. pt informed to tell er staff when able to give sample
[2024-08-06] MEDS: ONDANSETRON 4MG/2ML VIAL 4 MG IV (19:13)
[2024-08-06] MEDS: KETOROLAC 30MG/ML VIAL 15 MG IV (19:13)
[2024-08-06] MEDS: ACETAMINOPHEN 1,000MG/100ML VIAL 1000 MG IV (19:13)
[2024-08-06] MEDS: 0.9 % SODIUM CHLORIDE 1000ML 1,000 ML 999 ML IV (19:13)
[2024-08-06 19:29] LABS: Basophils # 0.2 K/mm3 (0-0.2); Basophils % 2.1 % (0.1-2.0); Eosinophils # 0.3 K/mm3 (0.0-0.4); Eosinophils % 4.1 % (0.1-12.0); Hemoglobin 14.2 g/dL (12.2-16.2); Lymphocytes # 1.7 K/mm3 (0.7-4.5); Lymphocytes % 22.4 % (10-50); Mean Corpuscular HGB Conc 33.9 g/dL (31.8-35.4); Mean Corpuscular Hemoglobin 30.6 pg (27.0-31.2); Mean Corpuscular Volume 90.5 fl (81-99); Mean Platelet Volume 6.9 fl (7.4-10.4); Monocytes # 0.6 K/mm3 (0.1-1.0); Monocytes % 8.2 % (1.7-9.3); Neutrophils # 4.8 K/mm3 (1.8-7.8); Neutrophils % 63.2 % (37.0-80.0); Platelet Count 282 K/mm3 (142-424); Red Blood Count 4.64 M/mm3 (4.20-5.40); Red Cell Distribution Width 12.8 % (11.5-17.5); White Blood Count 7.6 K/mm3 (4.8-10.8)
[2024-08-06 19:31] LABS: Albumin Level 4.6 g/dl (3.5-5.0); Chloride 107 mmol/L (98-107)
[2024-08-06 19:32] LABS: Potassium 3.4 mmoL/L (3.5-5.1); Sodium 139 mmol/L (136-145)
[2024-08-06 19:34] LABS: Alanine Aminotransferase 17 U/L (12-78); Anion Gap 11.4 mEq/L (5-15); Aspartate Amino Transferase 27 U/L (14-36); Blood Urea Nitrogen 9 mg/dl (7-17); Carbon Dioxide 24 mmol/L (22.0-30.0); Estimated Glomerular Filt Rate 101 ml/min (>60); GFR (African American) 122 ML/MIN (>60)
[2024-08-06 19:35] LABS: Albumin/Globulin Ratio 1.2 (1.1-1.8); Alkaline Phosphatase 60 U/L (38-126); Globulin 3.8 g/dL (1.3-3.2); Glucose 116 mg/dl (74-100); Total Protein,Serum 8.4 g/dl (6.3-8.2)
[2024-08-06 19:44] LABS: Microscopic, Urine URINE MICROSCOPIC (MICROSCOPIC)
[2024-08-06 19:49] LABS: Appearance,Urine CLEAR (Clear); Bilirubin,Urine Negative (Negative); Blood, Urine Negative (Negative); Color,Urine YELLOW (Yellow); Glucose,Urine (UA) Negative (Negative); Ketones,Urine Negative (Negative); Leukocyte Esterase,Urine TRACE (Negative); Nitrate,Urine Negative (Negative); PH,Urine 6.5 (5.0-8.5); Protein,Urine Negative (Negative); Specific Gravity, Urine <= 1.005 (1.005-1.030); Urobilinogen,Urine 0.2 EU/dl (0.2)
[2024-08-06 19:51] LABS: Urine Pregnancy, HCG Qual. Negative (Negative)
[2024-08-06 20:05] LABS: Bacteria,Urine 1+ /lpf
[2024-08-06 20:43] LABS: HIV (1&2) Antibody Rapid NONREACTIVE (NONREACTIVE)
[2024-08-06 21:45] VITALS: BP 133/73; PULSE 84; RESP 18; TEMP 36.8; O2SAT 100
[2024-08-08 08:22] LABS: HCV Ab Non Reactive (Non Reactive)
== END 2024-08-06 21:49 | disposition home or self-care (01) ==
PROVIDERS: Physician Assistant; Emergency Provider Emergency Medicine
DX: B34.9 Viral infection, unspecified (principal)
CPT/HCPCS: 71046; 80053; 81001; 81025; 85025; 86803; 87086; 87389; 87636; 93005; 96361; 96374; 96375; 99284; J0131; J1885; J2405; J7030

== ENCOUNTER 2024-11-23 17:33 | Emergency (ER) | payer MEDICAID, SELFPAY ==
[2024-11-23 17:35] VITALS: BP 146/79; PULSE 113; RESP 20; TEMP 36.9; O2SAT 100; BMI 28.5
[2024-11-23 17:58] LABS: Influenza A, PCR Not Detected (NotDetected); Influenza B, PCR Not Detected (NotDetected)
[2024-11-23 18:51] LABS: Coronavirus 19, PCR Detected (NotDetected)
--- NOTE | 2024-11-23 18:54 | ED_ITS ---
Discharge Plan Disposition Patient Disposition: Home, Self-Care Condition: Good Prescriptions Prescriptions: New bjhhgwmuwuhjwzb-nlrsmujvb-GE [Bromfed DM] 2-30-10 mg/5 mL syrup 5 ml PO Q4H PRN (Reason: sinus symptoms) Qty: 118 0RF No Action ondansetron 4 mg tablet,disintegrating 4 mg PO Q8H PRN (Reason: nausea and vomiting) Qty: 10 0RF sulfamethoxazole-trimethoprim [Bactrim DS] 800-160 mg tablet 1 tab PO BID 5 Days Qty: 10 0RF cephalexin [cephalexin] 500 mg capsule 500 mg PO TID Qty: 21 0RF ketorolac 10 mg tablet 10 mg PO Q8H PRN (Reason: pain) 3 Days Qty: 10 0RF cyclobenzaprine 10 mg tablet 10 mg PO BID Qty: 20 0RF Referrals Follow up/Referrals: Provider,Referral, MD [Primary Care Provider] - See instructions Activity Restrictions/Add. Instructions Additional Instructions/Restrictions: Continue taking Tylenol alternating with Motrin for constitutional symptoms. He can try any yzwu-zyx-qowpkef remedy that seems to help however have sent Bromfed into your pharmacy. If you have new continuing or worsening signs or symptoms follow-up with your PCP return to the ER as needed. Clinical Impressions Clinical Impression: Acute COVID-19 Stand Alone Forms Stand Alone Forms: Work/School Release Instructions Patient Instructions: DI for COVID-19 (Suspected or Confirmed ) Print Language Print Language: Portuguese Discharge ED Provider: Coral Patel General Adult HPI <ILIR Tran - Last Filed: 11/23/24 22:45> General Chief complaint: Upper Respiratory Infection Stated complaint: sore throat,body aches,cough,SOA Time Seen by Provider: 11/23/24 20:25 Mode of Arrival: Ambulatory Source of Information: Patient Limitations: No Limitations Description of Symptoms (Recalled from ER Triage Doc. by RN): c/o scratchy throat, body aches, cough, soa with coughing, body soreness, runny nose since yesterday, pt, boyfriend and daughter tested positive for covid, she needs a work not History of Present Illness HPI narrative: Patient presents for evaluation of sore throat myalgias nonproductive cough and runny nose. Patient's boyfriend and daughter both tested positive for COVID previously. She denies any chest pain fever chills hemoptysis hematochezia melena nausea vomiting diarrhea Related Data Previous Rx's ?Medication ?Instructions ?Recorded ondansetron 4 mg disintegrating 4 mg PO Q8H PRN nausea and 10/01/22 tablet vomiting #10 tabs cephalexin 500 mg capsule 500 mg PO TID #21 caps 03/05/23 cyclobenzaprine 10 mg tablet 10 mg PO BID #20 tabs 03/05/23 ketorolac 10 mg tablet 10 mg PO Q8H PRN pain 3 days #10 03/05/23 tabs sulfamethoxazole 800 1 tab PO BID 5 days #10 tabs 08/06/24 mg-trimethoprim 160 mg tablet (Bactrim DS) rhrgmasygyzavdq-upcqkvnprhpgxee-VG 5 ml PO Q4H PRN sinus symptoms 11/23/24 2 mg-30 mg-10 mg/5 mL oral syrup #118 mL (Bromfed DM) Allergies Allergy/AdvReac Type Severity Reaction Status Date / Time No Known Allergies Allergy Verified 10/01/22 18:43 [facility] <ILIR Tran - Last Filed: 11/23/24 22:45> [facility] Disclaimer: The information contained in this section may have been updated after the patient was seen, as this information can be updated by other users. Social History (Updated 10/01/22 @ 19:13 by Tiffanie Michaels APRN) Smoking Status: Unknown if ever smoked alcohol intake: never current occupational status: employed Travel in the last 8 weeks: None Have you lived/traveled outside [place] in past 30 days?: No Contact w/someone who lives/traveled outside US past 30 days?: No Exposure to someone with infectious disease in past 14 days?: No Do you have a fever (greater than 100.4 F or 38 C)?: No Have you tested positive for COVID-19: No Exposed to someone with COVID-19 in past 14 days?: No Do you have a sore throat?: Yes Do you have a cough?: Yes Do you have any weakness?: No Do you have any diarrhea?: No Are you experiencing any unusual bleeding?: No Do you have any muscle aches/pain?: Yes Do you have any abdominal pain?: No Are you experiencing loss of taste or smell?: No <ILIR Tran - Last Filed: 11/23/24 22:45> ROS Obtained: Yes Systems reviewed as appropriate & no additional complaints except as documented Physical Exam <ILIR Tran - Last Filed: 11/23/24 22:45> General General appearance: alert and in no apparent distress Respiratory Respiratory exam: Present normal lung sounds bilaterally Cardiovascular Cardiovascular exam: Present regular rate Neurological Exam Neurological exam: Present alert and oriented X3 Medical Decision Making <ILIR Tran - Last Filed: 11/23/24 22:45> Medical Records Screening: Per USPSTF and CDC recommendations, given the prevalence of disease in our region, it is our hospital?s policy to screen for HIV and viral Hepatitis for all patients aged 18 and over and those with ongoing risk factors. Ramiro Inquiry Pt receiving controlled substance: No Vital Signs: 11/23/24 17:35 11/23/24 20:37 Temperature 98.4 F 98.6 F Temperature Source Oral Oral Pulse Rate 101 H Pulse Rate [Left Radial] 113 H Respiratory Rate 20 18 Blood Pressure 129/83 Blood Pressure [Right Arm] 146/79 H Blood Pressure Mean [Right Arm] 101 Blood Pressure Source Automatic Cuff Blood Pressure Position Sitting 02 Sat by Pulse Oximetry 100 Oxygen Delivery Method Room Air Room Air Lab Data Lab results reviewed: Yes I reviewed the patient's lab results. Lab Results 11/23/24 17:43: SARS-CoV-2 (PCR) Detected A, Influenza A Untype (PCR) Not detected, Influenza Type B (PCR) Not detected Orders (Tests/Meds): ORDERS Category Date Time Status Rapid PCR Covid and Flu A/B Stat Lab 11/23/24 17:43 Completed Medical Decision Narrative: In summary patient is a 24-year-old female who presents to the emergency department for evaluation of respiratory tract infection symptoms. Patient is normotensive at 146/79 tachycardic at 113 breathing 20 times a minute satting at 100% on room air upon arrival, afebrile at 98.4. Zickel exam is remarkable for erythematous posterior pharynx without exudate, no cervical lymphadenopathy, clear breath sounds without adventitious sounds or increased work of breathing. Abdomen soft nontender no rebound or guarding or rigidity.. Differential diagnosis includes upper or lower respiratory tract infection. Initial workup will be conducted with COVID and flu swab. Initial interventions were considered however patient took Tylenol and Motrin prior to arrival and is tolerating oral intake thus she is deferred for now. Initial workup reviewed by me shows that she is COVID-positive.. Upon repeat evaluation patient's heart rate did come down to 101 patient remained afebrile still tolerating oral intake. Given this patient is appropriate for discharge with instructions for supportive and symptomatic care and close follow-up with PCP for continued new or worsening signs or symptoms or to return to the ER as needed. <Coral Patel, DO - Last Filed: 11/23/24 22:49> Vital Signs: 11/23/24 17:35 11/23/24 20:37 Temperature 98.4 F 98.6 F Temperature Source Oral Oral Pulse Rate 101 H Pulse Rate [Left Radial] 113 H Respiratory Rate 20 18 Blood Pressure 129/83 Blood Pressure [Right Arm] 146/79 H Blood Pressure Mean [Right Arm] 101 Blood Pressure Source Automatic Cuff Blood Pressure Position Sitting 02 Sat by Pulse Oximetry 100 Oxygen Delivery Method Room Air Room Air Lab Data Lab Results 11/23/24 17:43: SARS-CoV-2 (PCR) Detected A, Influenza A Untype (PCR) Not detected, Influenza Type B (PCR) Not detected Orders (Tests/Meds): ORDERS Category Date Time Status Rapid PCR Covid and Flu A/B Stat Lab 11/23/24 17:43 Completed Medical Decision Narrative: In summary patient is a 24-year-old female who presents to the emergency department for evaluation of respiratory tract infection symptoms. Patient is normotensive at 146/79 tachycardic at 113 breathing 20 times a minute satting at 100% on room air upon arrival, afebrile at 98.4. Physical exam is remarkable for erythematous posterior pharynx without exudate, no cervical lymphadenopathy, clear breath sounds without adventitious sounds or increased work of breathing. Abdomen soft nontender no rebound or guarding or rigidity.. Differential diagnosis includes upper or lower respiratory tract infection. Initial workup will be conducted with COVID and flu swab. Initial interventions were considered however patient took Tylenol and Motrin prior to arrival and is tolerating oral intake thus she is deferred for now. Initial workup reviewed by me shows that she is COVID-positive.. Upon repeat evaluation patient's heart r ate did come down to 101 patient remained afebrile still tolerating oral intake. Given this patient is appropriate for discharge with instructions for supportive and symptomatic care and close follow-up with PCP for continued new or worsening signs or symptoms or to return to the ER as needed. I was consulted by the TYLER, and we discussed the complexity of the problems being addressed. I approved the treatment and management plan for this patient's care in the emergency department, thus performing a substantive portion of the medical decision making. Coral Patel, Critical Care <ILIR Tran - Last Filed: 11/23/24 22:45> Critical Care Time Critical Care Time: No
--- NOTE | 2024-11-23 20:24 | PC.NURSE ---
Pt in triage provider assessing.
[2024-11-23 20:37] VITALS: BP 129/83; PULSE 101; RESP 18; TEMP 37; O2SAT 99
== END 2024-11-23 20:38 | disposition home or self-care (01) ==
PROVIDERS: Emergency Provider Emergency Medicine
DX: U07.1 COVID-19 (principal); R05.8 Other specified cough; R09.89 Other specified symptoms and signs involving the circulatory and respiratory systems; M79.10 Myalgia, unspecified site; Z20.822 Contact with and (suspected) exposure to COVID-19
CPT/HCPCS: 87636; 99283

== ENCOUNTER 2025-03-23 13:00 | Outpatient (CLI) | payer MEDICAID, SELFPAY ==
[2025-03-23 15:44] LABS: Coronavirus 19, PCR Not Detected (NotDetected); Human Rhinovirus Not Detected (NotDetected); Influenza A, PCR Not Detected (NotDetected); Influenza B, PCR Not Detected (NotDetected); Respiratory Syncytial Virus Not Detected (NotDetected)
== END 2025-03-23 23:59 | disposition home or self-care (01) ==
LOC: LAB.DROPOF 03-24 14:09
PROVIDERS: PCP Student in an Organized Health Care Education/Training Program; Visit Provider Student in an Organized Health Care Education/Training Program
DX: B34.9 Viral infection, unspecified (principal)
CPT/HCPCS: 87631

== ENCOUNTER 2025-05-21 19:29 | Emergency (ER) | payer MEDICAID, SELFPAY ==
[2025-05-21 19:33] VITALS: BP 126/79; PULSE 93; RESP 18; TEMP 36.8; O2SAT 100; BMI 25.6
--- NOTE | 2025-05-21 19:59 | ED_ITS ---
<Statement entered by Lna Roberts DO - 05/22/25 01:55> I was consulted by the TYLER, and we discussed the complexity of problems being addressed. I approved the treatment and management plan for this patient's care in the emergency department, thus performing a substantive portion of the medical decision making. On my physical examination of the patient she has no fluctuance of the periapical region of the gumline. No concern for periapical abscess. She is tolerating secretions well. Uvula is midline. Tonsils are symmetric. She has tenderness to the posterior aspect of her right axillary molar raising concern for a dental carry. We will treat this patient with Augmentin as well as pain control modalities. Patient was discharged home in stable condition. I have instructed her to follow with dentistry Lan Roberts DO Discharge Plan Disposition Patient Disposition: Home, Self-Care Condition: Good Prescriptions Prescriptions: New amoxicillin-pot clavulanate 875-125 mg tablet 1 tab PO BID 5 Days Qty: 10 0RF No Action ydttngldttkzemw-onhotjqjr-DQ [Bromfed DM] 2-30-10 mg/5 mL syrup 5 ml PO Q4-6H PRN (Reason: cold symptoms) Qty: 118 0RF Referrals Follow up/Referrals: Provider,Referral, MD [Primary Care Provider, Medical] - See instructions Activity Restrictions/Add. Instructions Additional Instructions/Restrictions: Please return to the emergency department with any worsening signs or symptoms. Please take your medication (antibiotic) as prescribed with food. Please follow-up with your dental provider in the upcoming days. Clinical Impressions Clinical Impression: Pain, dental Instructions Patient Instructions: DI for Dental Pain, DI for Tooth Decay Print Language Print Language: Serbian Discharge ED Provider: Lan Roberts General Adult HPI General Chief complaint: Dental/Oral Stated complaint: Toothache right side and burning in face Time Seen by Provider: 05/21/25 19:38 Mode of Arrival: Ambulatory Source of Information: Patient Description of Symptoms (Recalled from ER Triage Doc. by RN): Pt presents with c/o tooth pain, gum swelling, and burning sensation to the right side of her face History of Present Illness HPI narrative: 25-year-old female presents the emergency department with right sided dental pain, this patient states has been going on for several months, worsened within the last week, she describes a burning , sensation on the right side of her face and mouth, she has not yet followed with dentist provider in quite some time. Patient denies any fever chills chest pain shortness of breath nausea vomiting constipation diarrhea, no abdominal pain no urinary type symptomatology, no dysphagia or dyne aphasia, patient is a current everyday smoker, (vapes), denies any alcohol or drug use takes no other medications at home, is no other real relevant past medical history, has utilized Tylenol and Listerine for symptomatic relief with some relief. Initial triage vitals are unremarkable. Please note that above description of symptoms, in this electronic medical record under categorization of recalled from ER triage doctor by RN are reflective of an initial nursing assessment, however, is not reflective of my full history and physical exam that was personally taken and clarified. Consequentially, this preceding description of symptoms, which may include the patient's categorized chief complaint in the EMR, do not reflect my personal clinical impression, and the ultimate description of history of present illness and patient stated complaints should be deferred to this section of the note. Unless stated otherwise or congruent with this section of the note, additional signs, symptoms, or incongruence should be interpreted as inaccurate with my clinical impression. Onset (ago): week(s) Related Data Previous Rx's ?Medication ?Instructions ?Recorded kopbuyjniileqsa-fzjlzadecfsffgy-ZI 5 ml PO Q4-6H PRN c old symptoms 03/23/25 2 mg-30 mg-10 mg/5 mL oral syrup #118 mL (Bromfed DM) amoxicillin 875 mg-potassium 1 tab PO BID 5 days #10 t abs 05/21/25 clavulanate 125 mg tablet Allergies Allergy/AdvReac Type Severity Reaction Status Date / Time No Known Allergies Allergy Verified 03/23/25 12:44 [facility] Disclaimer: The information contained in this section may have been updated after the patient was seen, as this information can be updated by other users. Social History Smoking Status: Current every day smoker alcohol intake: never current occupational status: employed Travel in the last 8 weeks?: None Have you lived/traveled outside [place] in past 30 days?: No Contact w/someone who lives/traveled outside US past 30 days?: No Exposure to someone with infectious disease in past 14 days?: No Do you have a fever (greater than 100.4 F or 38 C)?: No Have you tested positive for COVID-19?: No Exposed to someone with COVID-19 in past 14 days?: No Do you have a sore throat?: No Do you have a cough?: No Do you have any weakness?: No Do you have any diarrhea?: No Are you experiencing any unusual bleeding?: No Do you have any muscle aches/pain?: No Do you have any abdominal pain?: No Are you experiencing loss of taste or smell?: No ROS Obtained: Yes All systems reviewed & no additional complaints except as documented Physical Exam General General appearance: alert and in no apparent distress Head Head exam: atraumatic and normocephalic Eye Eye exam: Present PERRL and EOMI ENT ENT exam: Present normal oropharynx, mucous membranes moist and other (There is no obvious periapical or periodontal abscess formation though be amicable to drainage, uvula is midline, no tonsillar exudate or tonsillar erythema no oropharyngeal edema or erythema.) Neck Neck exam: Present normal inspection Chest Chest inspection: Present normal inspection and symmetric chest wall rise Respiratory Respiratory exam: Present normal lung sounds bilaterally; Absent respiratory distress Cardiovascular Cardiovascular exam: Present regular rate and normal rhythm Abdominal Exam Abdominal exam: Present soft; Absent tenderness Extremities Exam Extremities exam: Present normal inspection Neurological Exam Neurological exam: Present alert and oriented X3 Psychiatric Psychiatric exam: Present normal affect Skin Skin exam: Present warm and dry Medical Decision Making Medical Records Medical records reviewed: Yes I reviewed the patient's medical records. Screening: Per USPSTF and CDC recommendations, given the prevalence of disease in our region, it is our hospital?s policy to screen for HIV and viral Hepatitis for all patients aged 18 and over and those with ongoing risk factors. Ramiro Inquiry Pt receiving controlled substance: No Ramiro was queried for this patient: No Vital Signs: 05/21/25 19:33 Temperature 98.3 F Temperature Source Oral Pulse Rate [Right] 93 H Respiratory Rate 18 Blood Pressure [Right Arm] 126/79 Blood Pressure Mean [Right Arm] 94 02 Sat by Pulse Oximetry 100 Lab Data Lab results reviewed: Yes I reviewed the patient's lab results. Orders (Tests/Meds): ED MEDICATIONS Discontinued Medications Generic Name Dose Route Start Last Admin Trade Name Freq PRN Reason Stop Dose Admin Acetaminophen 500 mg 05/21/25 20:13 08/22/25 20:21 Acetaminophen 500mg Tab PO 05/21/25 20:14 500 mg ONCE ONE Administration Ibuprofen 600 mg 05/21/25 20:13 05/21/25 20:21 Ibuprofen 600 Mg Tablet PO 05/21/25 20:14 600 mg ONCE ONE Administration Lidocaine HCl 15 ml 05/21/25 20:13 05/21/25 20:21 Lidocaine 2% Viscous Kristi 15ml Udc PO 05/21/25 20:14 15 ml ONCE ONE Administration Medical Decision Narrative: 25-year-old female presents to the emergency department with right-sided dental pain, been ongoing for multiple months, worsened within a week, differential diagnosis to include but not limited to dental abscess, periapical abscess, dental caries, among others. I discussed this patient's case with the attending physician Dr. Roberts he saw and examined the patient as well. Will give tooth ball,/dental ball, will give 600 mg Motrin and 500 mg acetaminophen p.o. for pain. There is no obvious periodontal or periapical abscess of be amicable for drainage at this time, patient will need to follow-up with dental provider in the upcoming days/weeks, will prescribe 875 mg p.o. Augmentin for 5 days, or until dental follow-up, patient was given strict ED return precautions, need to follow-up with dental provider. Patient voiced understanding and agreement with current treatment plan/discharge plan. Critical Care Critical Care Time Critical Care Time: No
[2025-05-21] MEDS: IBUPROFEN 600 MG TABLET PO (20:21)
[2025-05-21] MEDS: LIDOCAINE 2% VISCOUS SOL 15ML UDC 15 ML PO (20:21)
[2025-05-21] MEDS: ACETAMINOPHEN 500MG TAB 500 MG PO (20:21)
[2025-05-21 20:40] VITALS: BP 126/79; PULSE 93; RESP 18; TEMP 36.8; O2SAT 100
== END 2025-05-21 20:46 | disposition home or self-care (01) ==
PROVIDERS: Emergency Provider Student in an Organized Health Care Education/Training Program
DX: K08.89 Other specified disorders of teeth and supporting structures (principal); F17.210 Nicotine dependence, cigarettes, uncomplicated
CPT/HCPCS: 99283

== ENCOUNTER 2025-06-07 18:52 | Outpatient (CLI) | payer MEDICAID, SELFPAY ==
[2025-06-07 21:17] LABS: Coronavirus 19, PCR Not Detected (NotDetected); Influenza A, PCR Not Detected (NotDetected); Influenza B, PCR Not Detected (NotDetected)
== END 2025-06-07 23:59 | disposition home or self-care (01) ==
LOC: LAB.DROPOF 06-08 12:18
PROVIDERS: PCP Nurse Practitioner; Visit Provider Nurse Practitioner
DX: J06.9 Acute upper respiratory infection, unspecified (principal)
CPT/HCPCS: 87631

== ENCOUNTER 2025-08-10 10:16 | Outpatient (CLI) | payer MEDICAID, SELFPAY ==
[2025-08-10 14:41] LABS: Coronavirus 19, PCR Not Detected (NotDetected); Influenza A, PCR Not Detected (NotDetected); Influenza B, PCR Not Detected (NotDetected)
== END 2025-08-10 23:59 | disposition home or self-care (01) ==
LOC: LAB.DROPOF 08-11 14:03
PROVIDERS: Visit Provider Student in an Organized Health Care Education/Training Program
DX: J06.9 Acute upper respiratory infection, unspecified (principal)
CPT/HCPCS: 87631

== ENCOUNTER 2025-09-10 20:48 | Emergency (ER) | payer MEDICAID, SELFPAY ==
--- NOTE | 2025-09-10 20:59 | ED_ITS ---
Discharge Plan Disposition Patient Disposition: Home, Self-Care Condition: Good Prescriptions Prescriptions: New amoxicillin-pot clavulanate 875-125 mg tablet 1 tab PO BID 7 Days Qty: 14 0RF dexamethasone 2 mg tablet 10 mg PO DAILY 1 Days Qty: 5 0RF No Action amoxicillin 500 mg tablet 500 mg PO BID Qty: 20 0RF polymyxin B sulf-trimethoprim 10,000 unit- 1 mg/mL drops 1 drp ophthalmic (eye) Q3H 7 Days Qty: 10 0RF Rx Instructions: while awake; do not exceed 6 doses in 24 hours Referrals Follow up/Referrals: Provider,Referral, [Primary Care Provider, Medical] - See instructions Activity Restrictions/Add. Instructions Additional Instructions/Restrictions: The antibiotics as prescribed for 7 days. The take the next dose of steroids in 3 days which would be Saturday. Return to the emergency department if you have any facial swelling, unable to open your mouth, unable to tolerate your saliva or unable to swallow. Otherwise follow-up with your primary care provider. Take Tylenol and Motrin as needed for pain and swelling. Clinical Impressions Clinical Impression: Acute streptococcal pharyngitis Print Language Print Language: Malian Discharge ED Provider: Fabi Gibbs General Adult HPI General Chief complaint: Sore Throat Stated complaint: Pain in throat, body aches, SOA, Fever Time Seen by Provider: 09/10/25 20:59 History of Present Illness HPI narrative: Patient is an otherwise healthy 25-year-old female who presented to the emergency department with a sore throat. Patient states that her sore throat started yesterday. Patient states that she is having pain with swallowing. Patient developed body aches and fever today. Patient states that she has been able to tolerate her saliva. Patient denies any ear pain. Patient denies any chest pain or shortness of breath. Patient does report a mild headache. Patient states that her children have been sick with strep recently. Patient does not take any daily medications. No other prior surgeries. Related Data Previous Rx's ?Medication ?Instructions ?Recorded amoxicillin 500 mg tablet 500 mg PO BID #20 tabs 08/24 polymyxin B sulfate 10,000 1 drp ophthalmic (eye) Q3H 7 days 08/24/25 unit-trimethoprim 1 mg/mL eye drops #10 mL amoxicillin 875 mg-potassium 1 tab PO BID 7 days #14 t abs 09/10/25 clavulanate 125 mg tablet dexamethasone 2 mg tablet 10 mg (5 x 2 mg) PO DAILY 1 day #5 09/10/25 tabs Allergies Allergy/AdvReac Type Severity Reaction Status Date / Time No Known Allergies Allergy Verified 08/24/25 17:36 [facility] Disclaimer: The information contained in this section may have been updated after the patient was seen, as this information can be updated by other users. Medical History Viral upper respiratory infection Social History Smoking Status: Current every day smoker alcohol intake: never current occupational status: employed Travel in the last 8 weeks?: None Have you lived/traveled outside US in past 30 days?: No Contact w/someone who lives/traveled outside US past 30 days?: No Exposure to someone with infectious disease in past 14 days?: No Do you have a fever (greater than 100.4 F or 38 C)?: No Have you tested positive for COVID-19?: No Exposed to someone with COVID-19 in past 14 days?: No Do you have a sore throat?: No Do you have a cough?: No Do you have any weakness?: No Do you have any diarrhea?: No Are you experiencing any unusual bleeding?: No Do you have any muscle aches/pain?: No Do you have any abdominal pain?: No Are you experiencing loss of taste or smell?: No ROS Obtained: Yes All systems reviewed & no additional complaints except as documented and Yes Systems reviewed as appropriate & no additional complaints except as documented Physical Exam General General appearance: alert and in no apparent distress Head Head exam: atraumatic, normocephalic and normal inspection Eye Eye exam: Present normal appearance, PERRL and EOMI; Absent scleral icterus ENT ENT exam: Present normal exam, normal external ear exam and other (bilateral tonsillar hypertrophy with exudates, L tonsil mildly more enlarged uvula midline) Neck Neck exam: Present normal inspection and full ROM Chest Chest inspection: Present normal inspection and symmetric chest wall rise Respiratory Respiratory exam: Present normal lung sounds bilaterally; Absent respiratory distress or wheezes Cardiovascular Cardiovascular exam: Present regular rate, normal rhythm and normal heart sounds Abdominal Exam Abdominal exam: Present soft and distention; Absent tenderness, guarding or rebound Extremities Exam Extremities exam: Present normal inspection and full ROM Back Exam Back exam: Present normal inspection and full ROM Neurological Exam Neurological exam: Present alert and oriented X3 Psychiatric Psychiatric exam: Present normal affect and normal mood Skin Skin exam: Present warm and dry Medical Decision Making Medical Records Medical records reviewed: Yes I reviewed the patient's medical records. Screening: Per USPSTF and CDC recommendations, given the prevalence of disease in our region, it is our hospital?s policy to screen for HIV and viral Hepatitis for all patients aged 18 and over and those with ongoing risk factors. Ramiro Inquiry Pt receiving controlled substance: No Vital Signs: 09/10/25 21:09 09/10/25 21:13 09/10/25 23:07 Temperature 99.7 F H 99.7 F H 97.9 F Temperature Source Oral Pulse Rate 107 H 98 H Pulse Rate [Right] 107 H Respiratory Rate 18 18 22 Blood Pressure 127/78 121/75 Blood Pressure [Right Arm] 127/78 Blood Pressure Mean [Right Arm] 94 02 Sat by Pulse Oximetry 95 98 Oxygen Delivery Method Room Air Room Air Room Air Lab Data Lab results reviewed: Yes I reviewed the patient's lab results. Lab Results 09/10/25 21:06: SARS-CoV-2 (PCR) Not detected, Influenza Type A (PCR) Not detected, Influenza Type B (PCR) Not detected, RSV (PCR) Not detected, Rhinovirus (PCR) Not detected, Group A Strep Rapid Positive A 09/10/25 21:37: WBC 15.1 H, RBC 4.54, Hgb 13.8, Hct 40.6, MCV 89.4, MCH 30.4, MCHC 34.0, RDW 12.0, Plt Count 330, MPV 8.6, Neut % (Auto) 80.6 H, Lymph % (Auto) 11.2, [place] % (Auto) 6.7, Eos % (Auto) 0.9, Baso % (Auto) 0.3, Neut # (Auto) 12.2 H, Lymph # (Auto) 1.7, [place] # (Auto) 1.0, Eos # (Auto) 0.1, Baso # (Auto) 0.0, Sodium 139, Potassium 3.8, Chloride 100, Carbon Dioxide 24, Anion Gap 18.8 H, BUN 16, Creatinine 0.80, Estimated Creat Clear 136, Estimated GFR 86, Est GFR ( Amer) 104, Glucose 94, Calcium 9.3, Total Bilirubin 1.8 H, AST 28, ALT 21, Alkaline Phosphatase 68, Total Protein 8.9 H, Albumin 4.9, G lobulin 4.0 H, Albumin/Globulin Ratio 1.2, Serum HCG, Qual Negative 09/10/25 21:37 09/10/25 21:37 Orders (Tests/Meds): ED MEDICATIONS Discontinued Medications Generic Name Dose Route Start Last Admin Trade Name Freq PRN Reason Stop Dose Admin Dexamethasone Sodium Phosphate 10 mg 09/10/25 21:16 09/10/25 22:05 Dexamethasone 4mg/Ml 1ml Vial IV 09/10/25 21:17 10 mg ONCE ONE Administration Ampicillin Sodium/Sulbactam 100 mls @ 200 mls/hr 09/10/25 21:16 09/10/25 23:06 Sodium 3 gm/ Sodium Chloride IV 09/10/25 21:17 Infused ONCE ONE Infusion Iopamidol 75 ml 09/10/25 22:44 09/10/25 22:45 Iopamidol-370 (76%);100ml Bottle IV 09/10/25 22:45 75 ml ONCE ONE Administration Ketorolac Tromethamine 30 mg 09/10/25 21:22 09/10/25 22:06 Ketorolac 30mg/Ml Vial IV 09/10/25 21:23 30 mg ONCE ONE Administration Sodium Chloride 10 ml 09/10/25 22:44 09/10/25 22:45 Sodium Chloride 0.9% 10ml Syr (Rad Only) IV 10/10/25 22:43 10 ml NEEDED PRN Administration Maintain IV Site ORDERS Category Date Time Status CT soft tissue neck w con Stat Cat Scan 09/10/25 21:18 Completed CBC w/Auto Diff [Complete Blood Count Auto Diff] Stat Lab 09/10/25 21:37 Completed CMP [Comprehensive Metabolic Panel] Stat Lab 09/10/25 21:37 Completed HCG Qualitative, Serum Stat Lab 09/10/25 21:37 Completed Mini Respiratory Panel Stat Lab 09/10/25 21:06 Completed Strep Scrn Group A (Rapid) Stat Lab 09/10/25 21:06 Completed Blood Culture Stat Micro 09/10/25 21:40 Results Medical Decision Narrative: Patient is an otherwise healthy 25-year-old female who presented to the emergency department with a sore throat. On arrival, patient was tachycardic, febrile, vital signs were otherwise unremarkable. Differential includes but not limited to: Peritonsillar abscess, strep pharyngitis, viral pharyngitis, retropharyngeal abscess, amongst others. Exam, patient had bilateral tonsillar hypertrophy with exudates, right tonsil was mildly more enlarged than the left. Patient clinically has strep pharyngitis however given concern for peritonsillar abscess or tonsillar abscess, CT scan was obtained. Patient was given a dose of Unasyn here in the emergency department as well as a dose of dexamethasone. Differential includes but not limited to: CBC showed a leukocytosis of 15, hemoglobin was stable. CMP was unremarkable. test was negative. Strep screen was positive. CT scan showed no concern for peritonsillar abscess, tonsillar abscess, retropharyngeal abscess. At this time, patient was sent home with Augmentin. Patient was given return precautions for inability to swallow, facial swelling or other associated symptoms. Patient was otherwise discharged home in stable condition. Critical Care Critical Care Time Critical Care Time: No
[2025-09-10 21:09] VITALS: BP 127/78; PULSE 107; RESP 18; TEMP 37.6; O2SAT 95; BMI 28.1
[2025-09-10 21:11] LABS: Coronavirus 19, PCR Not Detected (NotDetected); Influenza A, PCR Not Detected (NotDetected); Influenza B, PCR Not Detected (NotDetected)
[2025-09-10 21:13] VITALS: BP 127/78; PULSE 107; RESP 18; TEMP 37.6; O2SAT 98
--- NOTE | 2025-09-10 21:18 | CT_ITS ---
PROCEDURE INFORMATION: Exam: CT Neck With Contrast Exam date and time: 09/10/2025 10:32 PM Age: 25 years old Clinical indication: Abscess, tonsil and other: Eval for scow captain; Additional info: Eval for scow captain, or tonsillar abscess right side TECHNIQUE: Imaging protocol: Computed tomography of the neck with contrast. Radiation optimization: All CT scans at this facility use at least one of these dose optimization techniques: automated exposure control; mA and/or kV adjustment per patient size (includes targeted exams where dose is matched to clinical indication); or iterative reconstruction. Contrast material: ISOVUE; Contrast volume: 75 ml; Contrast route: IV; COMPARISON: CT FACIAL BONES WO CON 03/04/2023 11:34 PM FINDINGS: Salivary glands: Normal. Glands are normal in size. Pharynx: Parapharyngeal fat planes appear normal. No evidence for peritonsillar abscess. Prominent tonsillar tissue may reflect early tonsillitis axial image 3/37. Larynx: Normal epiglottis. Thyroid: Normal. No enlarged or calcified nodules. Trachea: Visualized trachea is unremarkable. Lungs: Unremarkable as visualized. Lymph nodes: Shotty internal jugular chain lymph nodes. Bones/joints: Unremarkable. No acute fracture. Soft tissues: No significant prevertebral soft tissue swelling. IMPRESSION: 1. Parapharyngeal fat planes appear normal. 2. No evidence for peritonsillar abscess. 3. Prominent tonsillar tissue may reflect early tonsillitis axial image 3/37. 4. Shotty internal jugular chain lymph nodes. 5. No significant prevertebral soft tissue swelling. 6. Normal epiglottis.
[2025-09-10 21:23] LABS: Strep Scrn Group A (Rapid) Positive (Negative)
[2025-09-10 21:49] LABS: Hematocrit 40.6 % (37.0-47.0); Hemoglobin 13.8 g/dL (12.2-16.2); Immature Granulocytes % 0.3 %; Mean Corpuscular HGB Conc 34.0 g/dL (31.8-35.4); Mean Corpuscular Hemoglobin 30.4 pg (27.0-31.2); Mean Corpuscular Volume 89.4 fl (81-99); Nucleated Red Blood Cells % 0 %; Platelet Count 330 K/mm3 (142-424); Red Blood Count 4.54 M/mm3 (4.20-5.40); Red Cell Distribution Width-SD 39.1 fL; White Blood Count 15.1 K/mm3 (4.8-10.8)
[2025-09-10 21:53] LABS: Albumin Level 4.9 g/dl (3.5-5.0); Chloride 100 mmol/L (98-107); Sodium 139 mmol/L (136-145)
[2025-09-10 21:54] LABS: Potassium 3.8 mmoL/L (3.5-5.1)
[2025-09-10 21:56] LABS: Alanine Aminotransferase 21 U/L (12-78); Albumin/Globulin Ratio 1.2 (1.1-1.8); Alkaline Phosphatase 68 U/L (38-126); Anion Gap 18.8 mEq/L (5-15); Aspartate Amino Transferase 28 U/L (14-36); Bilirubin,Total 1.8 mg/dl (0.2-1.3); Blood Urea Nitrogen 16 mg/dl (7-17); Carbon Dioxide 24 mmol/L (22.0-30.0); Creatinine Clearance Estimated 136 mL/min (50-200); Creatinine,Serum 0.80 mg/dl (0.52-1.04); Estimated Glomerular Filt Rate 86 ml/min (>60); GFR (African American) 104 ML/MIN (>60); Globulin 4.0 g/dL (1.3-3.2); Total Protein,Serum 8.9 g/dl (6.3-8.2)
[2025-09-10 21:57] LABS: Calcium 9.3 mg/dl (8.4-10.2); Glucose 94 mg/dl (74-100)
[2025-09-10 22:00] LABS: HCG Qualitative, Serum Negative (Negative)
[2025-09-10] MEDS: DEXAMETHASONE 4MG/ML 1ML VIAL 10 MG IV (22:05)
[2025-09-10] MEDS: AMPICILLIN SODIUM/SULBACTAM 3 GM in 0.9 % SODIUM CHLORIDE 100 ML IV (22:06)
[2025-09-10] MEDS: KETOROLAC 30MG/ML VIAL 30 MG IV (22:06)
[2025-09-10] MEDS: IOPAMIDOL-370 (76%);100ML BOTTLE 75 ML IV (22:45)
[2025-09-10] MEDS: SODIUM CHLORIDE 0.9% 10ML SYR (RAD ONLY) 10 ML IV (22:45)
[2025-09-10 23:07] VITALS: BP 121/75; PULSE 98; RESP 22; TEMP 36.6; O2SAT 99
== END 2025-09-10 23:25 | disposition home or self-care (01) ==
PROVIDERS: Emergency Provider Student in an Organized Health Care Education/Training Program
DX: J02.0 Streptococcal pharyngitis (principal); R50.9 Fever, unspecified; F17.210 Nicotine dependence, cigarettes, uncomplicated
CPT/HCPCS: 70491; 80053; 84703; 85025; 87040; 87430; 87631; 96374; 96375; 99284; J0295; J1100; J1885; Q9967

== ENCOUNTER 2025-09-21 08:35 | Outpatient (CLI) | payer MEDICAID, SELFPAY ==
[2025-09-21 14:53] LABS: Coronavirus 19, PCR Not Detected (NotDetected); Influenza A, PCR Not Detected (NotDetected); Influenza B, PCR Not Detected (NotDetected)
== END 2025-09-21 23:59 | disposition home or self-care (01) ==
LOC: LAB.DROPOF 09-24 08:36
PROVIDERS: Visit Provider Student in an Organized Health Care Education/Training Program
DX: J06.9 Acute upper respiratory infection, unspecified (principal)
CPT/HCPCS: 87631